=== PATIENT | female | born 2000 | race Caucasian/White ===

== ENCOUNTER 2021-09-05 13:06 | Emergency (ER) | payer OTHER, MEDICAID ==
[~2021-09-05] VITALS: Ht 160 cm; Wt 81.7 kg
[2021-09-05] MEDS ORDERED: IBUPROFEN 800800 M1 PO (14:36)
[2021-09-05] MEDS ORDERED: FLEXERIL PO (14:36)
[2021-09-05 14:53] VITALS: BP 133/85
== END 2021-09-05 14:54 | disposition home or self-care (01) ==
LOC: M.ERS 13:06
DX: F07.81 Postconcussional syndrome (principal); M25.551 Pain in right hip; M54.2 Cervicalgia; M54.50 Low back pain, unspecified